=== PATIENT | female | born 1975 | race Native Hawaiian/Other Pacific Islander ===

== ENCOUNTER 2017-07-29 14:43 | Outpatient (CLI) | payer BC | END 2017-07-29 19:06 | disposition home or self-care (01) | LOC: MAMMO 14:43 | DX: Z12.31 Encounter for screening mammogram for malignant neoplasm of breast (principal) ==

== ENCOUNTER 2018-08-27 15:13 | Outpatient (CLI) | payer OTHER | END 2018-08-27 19:44 | disposition home or self-care (01) | LOC: MAMMO 15:13 | DX: Z12.31 Encounter for screening mammogram for malignant neoplasm of breast (principal) ==

== ENCOUNTER 2019-10-27 15:29 | Outpatient (CLI) | payer OTHER | END 2019-10-27 20:25 | disposition home or self-care (01) | LOC: MAMMO 15:29 | DX: Z12.31 Encounter for screening mammogram for malignant neoplasm of breast (principal) ==

== ENCOUNTER 2020-11-01 15:28 | Outpatient (CLI) | payer OTHER | END 2020-11-01 22:01 | disposition home or self-care (01) | LOC: MAMMO 15:28 | PROVIDERS: ATTEND Obstetrics & Gynecology | DX: Z12.31 Encounter for screening mammogram for malignant neoplasm of breast (principal) ==

== ENCOUNTER 2021-11-07 15:09 | Outpatient (CLI) | payer OTHER | END 2021-11-07 19:01 | disposition home or self-care (01) | LOC: MAMMO 15:09 | PROVIDERS: ATTEND Obstetrics & Gynecology | DX: Z12.31 Encounter for screening mammogram for malignant neoplasm of breast (principal) ==

== ENCOUNTER 2023-04-22 09:58 | Outpatient (CLI) | payer OTHER | END 2023-04-22 21:18 | disposition home or self-care (01) | LOC: CT 09:58 | PROVIDERS: ATTEND Internal Medicine | DX: R06.02 Shortness of breath (principal) | CPT/HCPCS: 36415; 82565; 84520; Q9963 ==